=== PATIENT | male | born 1940 | race Caucasian/White ===

== ENCOUNTER 2016-09-02 11:28 | Day surgery (SDC) | payer MEDICARE ==
[~2016-09-02 11:28] MED LIST: LACTATED RINGERS 1,000 ML IV SCH; LIDOCAINE 1% 20 ML VIAL (10MG/ML) FOR IV START INTRADERMA PRN
[2016-09-02 12:07] VITALS: BMI 28.2
[2016-09-02 12:27] LABS: Basophils % (A) 1 %; CH 31.5; CHCM 32.8; Eosinophils # (A) 0.2 k/uL (0-0.7); Eosinophils % (A) 3 %; HCT 35.6 % (39.0-53.0); HDW 2.79; HGB 12.3 gm/dL (13.0-17.5); Luc # (Auto) 0.09; Luc % (Auto) 2; Lymphocytes # (A) 0.9 k/uL (1.0-4.8); Lymphocytes % (A) 16 %; MCH 33.2 pg (25.0-35.0); MCHC 34.5 g/dL (31.0-37.0); MCV 96.2 fL (80.0-100.0); Mean Platelet Volume 6.9; Monocytes # (A) 0.3 k/uL (0-1.0); Monocytes % (A) 5 %; Neutrophils # (A) 4.2 k/uL (1.3-7.7); Neutrophils % (A) 74 %; RDW 13.8 % (11.5-15.5); WBC 5.7 k/uL (3.8-10.6)
[2016-09-02 12:31] VITALS: RESP 16; TEMP 97.9
[2016-09-02 12:31] LABS: Glucose,Whole Blood 128 mg/dL (75-99)
[2016-09-02 12:36] LABS: Anion Gap 12 mmol/L; Blood Urea Nitrogen 11 mg/dL (9-20); Carbon Dioxide 26 mmol/L (22-30); Chloride 105 mmol/L (98-107); Glucose 134 mg/dL (74-99); Non-African American GFR(MDRD) >60 (>60 ml/min/1.73 sqM); Sodium 143 mmol/L (137-145)
--- NOTE | 2016-09-02 13:08 | P.GSHP ---
History of Present Illness H&P Date: 09/02/16 Chief Complaint: GI bleed This a 75-year-old male who presents today for upper and lower endoscopy. He had a recent hospital admission for GI bleed. Past Medical History Past Medical History: Asthma, Chest Pain / Angina, Diabetes Mellitus, Hyperlipidemia, Hypertension, Osteoarthritis (OA), Sleep Apnea/CPAP/BIPAP Additional Past Medical History / Comment(s): SOB w/activity, recent stress test , aortic aneurysm-dr monitoring History of Any Multi-Drug Resistant Organisms: None Reported Past Surgical History: Cholecystectomy, Coronary Bypass/CABG, Heart Catheterization, Joint Replacement Additional Past Surgical History / Comment(s): both knees replaced, triply bypass of ,cataract surg. Past Anesthesia/Blood Transfusion Reactions: Postoperative Nausea & Vomiting ( PONV) Smoking Status: Never smoker Medications and Allergies Home Medications Medication Instructions Recorded Confirmed Type Albuterol Nebulized [Ventolin 2.5 mg INHALATION TID PRN 10/08/13 09/02/16 History Nebulized] Aspirin 325 mg PO DAILY 10/08/13 09/02/16 History Diltiazem Cd [Cardizem CD] 180 mg PO DAILY 10/08/13 09/02/16 History Doxazosin [Cardura] 4 mg PO HS 10/08/13 09/02/16 History Enalapril [Vasotec] 20 mg PO BID 10/08/13 09/02/16 History Furosemide [Lasix] 40 mg PO TID 10/08/13 09/02/16 History Ipratropium Nebulized [Atrovent 0.5 mg INHALATION Q8HR PRN 10/08/13 09/02/16 History Nebulized] Isosorbide Mononitrate ER [Imdur] 30 mg PO DAILY 10/08/13 09/02/16 History Metoprolol Tartrate [Lopressor] 50 mg PO DAILY 10/08/13 09/02/16 History Potassium Chloride [Klor-Con 20] 20 meq PO TID 10/08/13 09/02/16 History Simvastatin [Zocor] 40 mg PO HS 10/08/13 09/02/16 History cloNIDine HCL 0.3 mg PO TID 10/08/13 09/02/16 History hydrALAZINE HCL [Apresoline] 25 mg PO BID 10/08/13 09/02/16 History metFORMIN HCL [Glucophage] 500 mg PO BID 10/08/13 09/02/16 History Allergies Allergy/AdvReac Type Severity Reaction Status Date / Time Sulfa (Sulfonamide Allergy Rash/Hives Verified 09/02/16 12:00 Antibiotics) morphine AdvReac Nausea & Verified 09/02/16 12:00 Vomiting Surgical - Exam Vital Signs Temp Pulse Resp BP Pulse Ox 97.9 F 90 16 129/72 96 09/02/16 12:27 09/02/16 12:27 09/02/16 12:27 09/02/16 12:27 09/02/16 12:27 - General well developed, no distress - Eyes PERRL - ENT normal pinna - Neck no masses - Respiratory normal expansion - Cardiovascular Rhythm: regular - Abdomen Abdomen: soft, non tender Results - Labs 09/02/16 12:20 09/02/16 12:20 Abnormal Lab Results - Last 24 Hours (Table) 09/02/16 09/02/16 09/02/16 Range/Units 12:14 12:20 12:20 RBC 3.70 L (4.30-5.90) m/uL Hgb 12.3 L (13.0-17.5) gm/dL Hct 35.6 L (39.0-53.0) % Lymphocytes # 0.9 L (1.0-4.8) k/uL Glucose 134 H (74-99) mg/dL POC Glucose (mg/dL) 128 H (75-99) mg/dL Diabetes panel 09/02/16 Range/Units 12:20 Sodium 143 (137-145) mmol/L Potassium 4.0 (3.5-5.1) mmol/L Chloride 105 (98-107) mmol/L Carbon Dioxide 26 (22-30) mmol/L BUN 11 (9-20) mg/dL Creatinine 0.80 (0.66-1.25) mg/dL Glucose 134 H (74-99) mg/dL Calcium 9.0 (8.4-10.2) mg/dL Calcium panel 09/02/16 Range/Units 12:20 Calcium 9.0 (8.4-10.2) mg/dL Pituitary panel 09/02/16 Range/Units 12:20 Sodium 143 (137-145) mmol/L Potassium 4.0 (3.5-5.1) mmol/L Chloride 105 (98-107) mmol/L Carbon Dioxide 26 (22-30) mmol/L BUN 11 (9-20) mg/dL Creatinine 0.80 (0.66-1.25) mg/dL Glucose 134 H (74-99) mg/dL Calcium 9.0 (8.4-10.2) mg/dL Adrenal panel 09/02/16 Range/Units 12:20 Sodium 143 (137-145) mmol/L Potassium 4.0 (3.5-5.1) mmol/L Chloride 105 (98-107) mmol/L Carbon Dioxide 26 (22-30) mmol/L BUN 11 (9-20) mg/dL Creatinine 0.80 (0.66-1.25) mg/dL Glucose 134 H (74-99) mg/dL Calcium 9.0 (8.4-10.2) mg/dL Assessment and Plan Plan: GI bleed. We'll perform EGD and colonoscopy.
[2016-09-02] MEDS ORDERED: PROPOFOL 10 MG/ML 20 ML VIAL IV ONE (13:13)
--- NOTE | 2016-09-02 13:37 | P.OP ---
Date of Procedure: 09/02/16 Preoperative Diagnosis: GI bleed Postoperative Diagnosis: Mild antral gastritis Mild diverticulosis No evidence of GI bleed Procedure(s) Performed: EGD Colonoscopy Implants: Anesthesia: MAC Surgeon: Allan Cardoza Pathology: other (Antrum) Condition: stable Disposition: PACU Indications for Procedure: Operative Findings: Description of Procedure: The patient's placed on the endoscopy table lateral position. He received IV sedation. The gastroscope some placed oropharynx and passed into the esophagus and into the scope was then placed through the pylorus. The first and second portion of the duodenum appeared normal. Scope was then brought back the antrum and this appeared mildly inflamed. A biopsies performed. Scope was retroflexed and remainder of the stomach appeared normal. The GE junction was at 40 cms. The distal esophagus appeared normal the proximal esophagus. Normal scope was withdrawn. Next digital rectal exam was performed which revealed no abnormality. The prostate was symmetric without nodules. The flexible colonoscope was then placed patient anus passed throughout the entire colon. The ileocecal valve was visualized. The cecum, ascending and transverse colon appeared normal. In the descending; was mild diverticular changes. The scope was then brought back the rectum and this appeared normal. Scope was withdrawn for patient.
[2016-09-02 13:57] VITALS: BP 129/77; PULSE 86
== END 2016-09-02 14:15 | disposition home or self-care (01) ==
LOC: ORWHC2ENDO 11:28
PROVIDERS: ATTEND Surgery
DX: K29.50 Unspecified chronic gastritis without bleeding (principal); K57.30 Diverticulosis of large intestine without perforation or abscess without bleeding; Z87.19 Personal history of other diseases of the digestive system; J45.909 Unspecified asthma, uncomplicated; E11.9 Type 2 diabetes mellitus without complications; E78.5 Hyperlipidemia, unspecified; I10 Essential (primary) hypertension; M19.90 Unspecified osteoarthritis, unspecified site; G47.33 Obstructive sleep apnea (adult) (pediatric); I25.10 Atherosclerotic heart disease of native coronary artery without angina pectoris; Z95.1 Presence of aortocoronary bypass graft; Z79.84 Long term (current) use of oral hypoglycemic drugs; Z79.82 Long term (current) use of aspirin; Z79.899 Other long term (current) drug therapy; Z88.2 Allergy status to sulfonamides
CPT/HCPCS: 88305; 80048; 85025; 88342; 45378; 43239; J2704